=== PATIENT | male | born 1995 | race Caucasian/White ===

== ENCOUNTER 2019-03-27 10:50 | Outpatient (CLI) | payer OTHER, SELFPAY ==
[2019-03-27 11:14] LABS: Abs Immature Grans 0.03 k/cumm (0.0-0.09); Absolute Basophil Count 0.03 k/cumm (0.0-0.2); Absolute Eosinophil Count 0.11 k/cumm (0.0-0.7); Absolute Lymphocyte Count 1.94 k/cumm (1.2-3.4); Absolute Monocyte Count 0.36 k/cumm (0.11-0.7); Absolute Neutrophil Count 3.81 k/cumm (1.2-6.7); Basophils % 0.5; Eosinophils % 1.8; HCT 47.4 % (40.0-50.0); Immature Grans % 0.5; Lymphocytes % 30.9; Mean Corp. HGB Concentration 33.8 g/dL (32.0-36.0); Mean Corpuscular Hemoglobin 31.5 pg (27.0-33.0); Mean Corpuscular Volume 93.3 fL (80-95); Mean Platelet Volume 8.9 fL (8.0-11.0); Monocytes % 5.7; Neutrophils % 60.6; Platelet Count 348 x1000/uL (130-400); RBC 5.08 m/cumm (4.50-6.00); RBC Distribution Width 13.4 % (11.8-14.1); White Blood Cell Count 6.28 k/cumm (4.4-10.8)
[2019-03-27 12:26] LABS: ALT 43 U/L (12-78); AST 21 U/L (15-37); Albumin 4.1 g/dL (3.4-5.0); Alkaline Phosphatase 57 U/L (46-116); Anion Gap 11.1 mmol/L (3-11); BUN 15 mg/dL (7-18); Bilirubin, Total 0.5 mg/dL (0.2-1.0); CO2 25.9 mmol/L (21.0-32.0); CREATININE 1.03 mg/dL (0.70-1.30); Calcium 9.2 mg/dL (8.5-10.1); Chloride 104 mmol/L (98-107); Glucose 103 mg/dL (70-100); Potassium 4.4 mmol/L (3.5-5.1); Sodium 141 mmol/L (136-145); Total Protein 7.3 g/dL (6.4-8.2)
== END 2019-03-27 11:10 ==
PROVIDERS: PCP Nurse Practitioner Family; Visit Provider Family Medicine
DX: R55 Syncope and collapse (principal)
CPT/HCPCS: 36415; 80053; 83735; 85025

== ENCOUNTER 2019-03-28 04:11 | Outpatient (CLI) | payer OTHER, SELFPAY ==
--- NOTE | 2019-04-15 13:10 | ZIOP_ITS ---
DATE OF DICTATION: April 15, 2019 STUDY INDICATION: Syncope. REQUESTING PROVIDER: Soniya Glez N.P. FINDINGS: The patient was monitored for 7 days and 10 hours. The predominant underlying rhythm was sinus rhythm. Average heart rate in sinus rhythm 87 bpm, range 45 to 176 bpm. There was rare ectopy. There were no ventricular or supraventricular tachycardias. There were intermittent nocturnal first-degree AV block and second-degree AV block Mobitz type 1. There was no high-degree heart block. There were no pauses greater than 3 seconds. There were two patient events. None of these events correlated with arrhythmias. FINAL INTERPRETATION: Intermittent nocturnal first-degree AV block and second- degree AV block Mobitz Type 1, likely due to increased vagal tone.
== END 2019-03-28 04:31 ==
PROVIDERS: PCP Nurse Practitioner Family; Visit Provider Family Medicine
DX: R55 Syncope and collapse (principal); I44.0 Atrioventricular block, first degree; I44.1 Atrioventricular block, second degree
CPT/HCPCS: 0296T

== ENCOUNTER 2019-08-01 08:48 | Outpatient (CLI) | payer OTHER, SELFPAY | END 2019-08-01 09:08 | PROVIDERS: PCP Nurse Practitioner Family; Visit Provider Internal Medicine Cardiovascular Disease | DX: R55 Syncope and collapse (principal) | CPT/HCPCS: 93005; 93010 ==

== ENCOUNTER 2020-04-27 03:05 | Outpatient (CLI) | payer MEDICAID, SELFPAY ==
[2020-04-29 18:47] LABS: Patient Race White; SARS-CoV-2 RNA Undetected (Undetected); SARS-CoV-2 Specimen Source Nasopharynx
== END 2020-04-27 03:25 ==
PROVIDERS: PCP Nurse Practitioner Family; Visit Provider Nurse Practitioner Family
DX: Z11.59 Encounter for screening for other viral diseases (principal)
CPT/HCPCS: U0003

== ENCOUNTER 2020-07-09 11:18 | Outpatient (CLI) | payer MEDICAID, SELFPAY ==
[2020-07-12 10:22] LABS: COVID-19 RT-PCR Result NEGATIVE (Negative)
== END 2020-07-09 11:38 ==
PROVIDERS: PCP Nurse Practitioner Family; Visit Provider Nurse Practitioner Family
DX: Z20.828 Contact with and (suspected) exposure to other viral communicable diseases (principal)
CPT/HCPCS: U0003

== ENCOUNTER 2020-09-14 02:08 | Outpatient (CLI) | payer MEDICAID, SELFPAY ==
[2020-09-15 15:17] LABS: COVID-19 RT-PCR UVMMC Result Negative (Negative)
== END 2020-09-14 02:09 | disposition home or self-care (01) ==
PROVIDERS: PCP Nurse Practitioner Family; Visit Provider Nurse Practitioner Family
DX: Z20.822 Contact with and (suspected) exposure to COVID-19 (principal)
CPT/HCPCS: U0003

== ENCOUNTER 2021-01-02 08:40 | Emergency (ER) | payer MEDICAID, SELFPAY ==
[2021-01-02 08:46] VITALS: BP 122/87; PULSE 73; RESP 14; TEMP 36.3; O2SAT 98
--- NOTE | 2021-01-02 08:52 | W.ED.GENAD ---
Discharge Plan Disposition Patient Disposition: HOME Condition: Good Discharge Details Clinical Impression: Dog bite Primary Care Provider: Soniya Glez ED Provider: Shiloh Boyer Home Meds and New Rx's Prescriptions: New amoxicillin-pot clavulanate [Augmentin] 875-125 mg tablet 1 tab PO BID Qty: 10 RF: 0 Discharge Instructions Instructions: Animal Bite (ED) Additional Instructions: Keep wound clean, dry, covered. Tylenol and/or ibuprofen as needed for discomfort. You small puncture wounds are at risk to get infected. I would like you to take Augmentin, please take as prescribed. Even if symptoms improve, please take the entire course. If you develop redness, warmth, drainage, increased pain, fever/chills or other new/worsening symptoms please seek care urgently once again. Otherwise, please follow-up with your primary care this week for reevaluation of the wound. We have reached out to health officer and deputy city clerk regarding the dog ensuring that the dog rabies vaccine is up-to-date. They will be in touch with you regarding any further needed care. Referrals: Soniya Glez, LEVEL VIAL INSPECTOR [Primary Care Provider] - Medical Decision Making Patient is a pleasant 25-year-old male presenting today with chief complaint of dog bite. He reports that yesterday, while at work, a client's small dog bit the posterior aspect of his left knee unprovoked. Denies other injury at the time of the incident. He states that he cleansed the wound yesterday. Denies any fevers or chills. He notes that there is some swelling around the wound. He has contacted his employer. They have reached out to homeowners who reports that the dog is vaccinated. However, this has not been verified as of yet. Tetanus was within the last 10 years. On exam, patient is a very small puncture wound to the posterior aspect of the left knee. He has good range of motion. Flexion against resistance is intact. 2+ distal pulses. Sensation is intact. Minimal swelling around the puncture wound. No erythema, warmth, drainage. No area of fluctuance. Contacted deputy city clerk and health officer regarding the bite. They will follow-up to ensure the dog is up-to-date on rabies vaccines. We will hold off on rabies prophylaxis at this time. I am concerned, particular given the location of the bite, for infection and would like to begin him on Augmentin. Strict return precautions were discussed, in particular signs of infection. Encouraged close follow-up with primary care for reevaluation of the wound. We did discuss wound care. All his questions and concerns were addressed and he is in agreement this plan. HPI General Mode of arrival: ambulatory. Date/Time Provider Initiated Documentation: 01/02/21 08:52. Limitations to Documentation: no limitations. Information obtained by: patient and RN notes reviewed. History of Present Illness 25 year old M presents to the emergency department with the chief complaint of dogbite left posterior knee, described as mild (denies pain at this time), Quality is described as aching, and is localized to the left and lower extremity. Patient reports no radiation. Patient started experiencing this day(s) (1) and it has been now resolved. No relieving factors improve symptom(s), No exacerbating factors reported . Patient notes no other symptoms.. Patient did receive the following treatments prior to arrival, none Related Data Home Medications Medication Instructions Recorded Confirmed amoxicillin-pot clavulanate 1 tab PO BID #10 tab 01/02/21 [Augmentin] Previous Rx's Medication Instructions Recorded amoxicillin-pot clavulanate 1 tab PO BID #10 tab 01/02/21 [Augmentin] Allergies Allergy/AdvReac Type Severity Reaction Status Date / Time No Known Allergies Allergy Verified 01/02/21 08:49 General Stated Complaint: AnimalBite ROCHELLE: 4 Review of Systems Constitutional Constitutional: Reports as per HPI, Denies chills, Denies fever(s) and Denies weakness Musculoskeletal Musculoskeletal: Reports as per HPI and Denies tingling Integumentary/Breasts Skin/Breast: Reports as per HPI, Denies rash and Reports wounds Neurologic Neurologic: Reports as per HPI, Denies tingling, Denies paresthesias and Denies weakness [facility] Medical History (Updated 01/02/21 @ 09:16 by MEGHAN Michael) AV block, 1st degree 03/2019 Ziopatch: nocturnal AV block, 2nd degree 03/2019 Ziopatch: nocturnal, Type I Obesity (BMI 30-39.9) Syncope 03/2019 x 2; 06/2019: no further episodes since 03/2019 Surgical History Appendectomy (~2009) Family History (Updated 08/01/19 @ 09:48 by Destiny Saavedra RN) Sister JOE (juvenile rheumatoid arthritis) Father Diabetes Essential hypertension Hyperlipidemia Heart disease Myocardial infarction stents, CABG Hypertension Grandfather Neoplasm Thyroid CA Grandfather , Colon CA Diabetes Essential hypertension Hyperlipidemia Myocardial infarction 52 Neoplasm Colon CA dx'ed 67 Grandmother , Colon CA Neoplasm Colon CA dx'ed 65 Social History Smoking/Tobacco Use Status: Never Smoking risk assessment performed?: Yes Alcohol Intake: current Alcohol Intake frequency: holidays/special occasions only Drug use: Never Substance use type: does not use Caregiver/Support person: No Communication Needs: None What type of physical activity do you participate in: none Do you feel safe at home: Yes Do you feel safe in your relationship?: Yes Exam Const General: cooperative, healthy appearing, comfortable, no acute distress, well developed and well groomed Nutritional Appearance: average body habitus and well nourished Orientation: alert and awake Resp Effort & Inspection: normal respiratory effort, able to speak in complete sentences and no respiratory distress Cardio Rate: regular rate Rhythm: regular rhythm Skin General skin exam: no erythema Trauma: puncture (small healing pucture to posterior left knee, minimal swelling around this) Neuro General: patient alert and patient awake Cognition: normal cognition Speech: speech normal Gait: normal gait Motor: muscle tone normal throughout Sensory Exam: no sensory deficits noted Extrem Knee images: 1. area of puncture wound. No surrounding erythema, warmth, drainage. Small amount of swelling around this. No discharge. Appears to be healing well. Full ROM of knee. 2+ distal pulses. Flexion against resistance intact 5/5. No sensory deficits noted Psych Appearance: grossly normal and well kempt Mental Status: mental status grossly normal Speech and Movement: speech and movement normal Course Vital Signs Vital signs: Vital Signs Temperature 36.3 C L 01/02/21 08:46 Pulse 73 01/02/21 08:46 Respiratory Rate 14 01/02/21 08:46 Blood Pressure 122/87 01/02/21 08:46 Pulse Oximetry 98 01/02/21 08:46 Temperature 36.3 C L 01/02/21 08:46 Temperature Source Skin 01/02/21 08:46 Pulse 73 01/02/21 08:46 Respiratory Rate 14 01/02/21 08:46 Blood Pressure 122/87 01/02/21 08:46 Blood Pressure Position Sitting 01/02/21 08:46 Pulse Oximetry 98 01/02/21 08:46 Oxygen Delivery Method Room Air 01/02/21 08:46 Oxygen Flow Rate 0 01/02/21 08:46 Pain Level 0 01/02/21 08:46
[2021-01-02] MEDS: Amoxicillin 875/Clav. 125 TAB PO (09:21)
== END 2021-01-02 09:27 | disposition home or self-care (01) ==
PROVIDERS: Emergency Provider Physician Assistant; PCP Nurse Practitioner Family
DX: S81.052A Open bite, left knee, initial encounter (principal); W54.0XXA Bitten by dog, initial encounter; Y99.0 Civilian activity done for income or pay
CPT/HCPCS: 99283

== ENCOUNTER 2021-03-19 19:58 | Emergency (ER) | payer BC, SELFPAY ==
[2021-03-19 20:02] VITALS: BP 119/76; PULSE 98; RESP 16; TEMP 37.2; O2SAT 98
--- NOTE | 2021-03-19 20:07 | ED.GENADUL_ITS ---
Discharge Plan Disposition Patient Disposition: HOME Condition: Good Discharge Details Clinical Impression: Viral URI Primary Care Provider: Soniya Glez ED Provider: Yrn Lewis Discharge Instructions Instructions: Upper Respiratory Infection (ED) Additional Instructions: Your ear has fluid behind it but is not red or opacified. Should respond to Sudafed as we discussed. You should continue to quarantine at home until your Covid results come back. Rest, drink plenty of fluids, use acetaminophen or ibuprofen for discomfort. Follow-up with PCP 1 to 2 weeks if not improving. Return to the ED if you develop mental status changes, shortness of breath, chest pain, neurologic changes, other concerns. Stand Alone Forms: PENDING COVID-19 TESTING Referrals: Soniya Glez, BUSINESS TECHNOLOGY PROFESSOR [Primary Care Provider] - Medical Decision Making Patient looks well. Saturations are 98% on room air. Lungs are clear. Definitely has a viral URI, consider Covid. Ear pain due to eustachian tube dysfunction and serous otitis which should respond to Sudafed. No indication for antibiotic. Home quarantine until Covid testing back. Rest, fluids, acetaminophen or ibuprofen for pain, pseudoephedrine for congestion. Follow-up with PCP 1 to 2 weeks if not improved and negative Covid test. Return to ED for mental status changes, chest pain, shortness of breath, neurologic changes, or other concerns. HPI General Mode of arrival: ambulatory . Date/Time Provider Initiated Documentation: 03/19/21 20:07 . Limitations to Documentation: no limitations . Information obtained by: patient and RN notes reviewed . HPI Narrative: Patient presents to ED with right ear pain. Patient reports not feeling well since with headache, congestion, sore throat, cough, questionable fevers though no temperature actually taken. He is fully Covid vaccinated. He has no known exposure. He denies having chest pain or shortness of breath. He has no GI symptoms. Today his right ear has been very painful and not responding to acetaminophen. He had Covid testing done yesterday with results pending. Wanted to make sure he did not have an ear infection and came in for evaluation here tonight. Related Data Allergies Allergy/AdvReac Type Severity Reaction Status Date / Time amoxicillin AdvReac Intermediate Other (See Unverified 03/19/21 20:06 Comment) General Stated Complaint: EarProblem ROCHELLE: 4 Review of Systems Narrative: As documented in HPI otherwise negative as below. Const: no chills, weakness Resp: no SOB, pleuritic pain CV: no CP, diaphoresis, edema, syncope GI: no abdominal pain, nausea, vomiting, diarrhea Neuro: no numbness, focal weakness, confusion [facility] Medical History AV block, 1st degree 03/2019 Ziopatch: nocturnal AV block, 2nd degree 03/2019 Ziopatch: nocturnal, Type I Obesity (BMI 30-39.9) Syncope 03/2019 x 2; 06/2019: no further episodes since 03/2019 Surgical History Appendectomy (~2009) Family History (Updated 08/01/19 @ 09:48 by Destiny Saavedra RN) Sister JOE (juvenile rheumatoid arthritis) Father Diabetes Essential hypertension Hyperlipidemia Heart disease Myocardial infarction stents, CABG Hypertension Grandfather Neoplasm Thyroid CA Grandfather , Colon CA Diabetes Essential hypertension Hyperlipidemia Myocardial infarction 52 Neoplasm Colon CA dx'ed 65 Grandmother , Colon CA Neoplasm Colon CA dx'ed 65 Social History Smoking/Tobacco Use Status: Never Smoking risk assessment performed?: Yes Alcohol Intake: current Alcohol Intake frequency: holidays/special occasions only Drug use: Never Substance use type: does not use Caregiver/Support person: No Communication Needs: None What type of physical activity do you participate in: none Do you feel safe at home: Yes Do you feel safe in your relationship?: Yes Exam Narrative Exam Narrative: Const: WDWN male in NAD. HEENT: NC/AT. Normal facial exam. Left TM normal. Right TM with fluid behind it which is clear. No erythema or opacification. Oropharynx is normal. Eyes: Normal conjunctiva and sclera. Neck: Supple. Trachea midline. Lungs: Normal respiratory effort. Lungs are clear. Cor: RRR without murmur/gallop. Neuro: A+O x 3. Normal speech, mentation, gait. Cranial nerves II - XII grossly intact. No gross motor or sensory deficit. Ext: No C/C/E. Skin: Warm and dry without rash. Course Vital Signs Vital signs: Vital Signs Temperature 99.0 F 03/19/21 20:02 Pulse 98 H 03/19/21 20:02 Respiratory Rate 16 03/19/21 20:02 Blood Pressure 119/76 03/19/21 20:02 Pulse Oximetry 98 03/19/21 20:02 Temperature 99.0 F 03/19/21 20:02 Temperature Source Skin 03/19/21 20:02 Pulse 98 H 03/19/21 20:02 Respiratory Rate 16 03/19/21 20:02 Blood Pressure 119/76 03/19/21 20:02 Blood Pressure Position Sitting 03/19/21 20:02 Pulse Oximetry 98 03/19/21 20:02 Oxygen Delivery Method Room Air 03/19/21 20:02 Oxygen Flow Rate 0 03/19/21 20:02
[2021-03-19 21:12] VITALS: BP 119/76; PULSE 88; RESP 16; TEMP 37.2; O2SAT 98
== END 2021-03-19 20:35 | disposition home or self-care (01) ==
PROVIDERS: Emergency Provider Emergency Medicine; PCP Nurse Practitioner Family
DX: J06.9 Acute upper respiratory infection, unspecified (principal); H92.01 Otalgia, right ear
CPT/HCPCS: 99282

== ENCOUNTER 2023-10-12 12:51 | Outpatient (CLI) | payer BC, SELFPAY ==
[2023-10-12 09:22] LABS: ALT 40 U/L (16-63); AST 25 U/L (15-37); Alkaline Phosphatase 68 U/L (46-116); Bilirubin, Total 0.5 mg/dL (0.2-1.0); Total Protein 7.4 g/dL (6.4-8.2)
[2023-10-12 09:42] LABS: Bilirubin, Direct 0.1 mg/dL (0.0-0.2)
== END 2023-10-12 12:52 | disposition home or self-care (01) ==
LOC: LBO 12:51
PROVIDERS: PCP Family Medicine; Visit Provider Family Medicine
DX: B35.1 Tinea unguium (principal); Z79.899 Other long term (current) drug therapy
CPT/HCPCS: 36415; 80076